=== PATIENT | female | born 1995 | race Caucasian/White ===

== ENCOUNTER 2021-09-24 07:23 | Inpatient (IN) | payer BC ==
[2021-09-24] MEDS ORDERED: Ibuprofen 800 MG TAB PO PRN (08:30)
[2021-09-24] MEDS ORDERED: Methylergonovine 0.2 MG/ML VIAL IM PRN (08:30)
[2021-09-24] MEDS ORDERED: Lidocaine 1% (PF) 30 ML VIAL SC PRN (08:30)
[2021-09-24] MEDS ORDERED: Butorphanol Tartrate 1 MG/ML VIAL SLOW IVP PRN (08:30)
[2021-09-24] MEDS ORDERED: Lactated Ringer's 1,000 ML IV PRN (08:30)
[2021-09-24] MEDS ORDERED: Ondansetron PF 4 MG/2 ML Vial IVP PRN ×2 (08:30→19:29)
[2021-09-24] MEDS ORDERED: Promethazine HCl 25 MG/ML VIAL IM PRN ×2 (08:30→19:29)
[2021-09-24] MEDS ORDERED: HYDROcodone/Acetaminophen 5/325 mg Tablet PO PRN ×2 (08:30)
[2021-09-24] MEDS ORDERED: Misoprostol 200 MCG TAB PR PRN (08:30)
[2021-09-24] MEDS ORDERED: NS w/ Oxytocin 30 units 500 ML IV SCH ×2 (08:30)
[2021-09-24] MEDS ORDERED: hydrALAZINE 20 MG/ML VIAL SLOW IVP PRN (08:30)
[2021-09-24 09:34] VITALS: BMI 30.3
[2021-09-24 09:36] LABS: Hemoglobin 13.3 g/dL (12.0-15.5); Mean Corpuscular HGB CONC 34.8 g/dL (32.0-36.0); Mean Corpuscular Hemoglobin 29.8 pg (27.0-33.0); Mean Corpuscular Volume 85.7 fl (81.6-98.3); Mean Platelet Volume 11.3 fl (7.4-10.4); Platelet Count 197 10x3/uL (150-450); RBC Distribution Width 13.2 % (11.5-14.5); Red Blood Cell (RBC) Count 4.46 10x6/uL (3.90-5.03); White Blood Cell (WBC) Count 10.1 10x3/uL (3.5-10.5)
[2021-09-24 10:05] LABS: Syphilis Antibody Nonreactive (Nonreactive); Syphilis Antibody Index 0.06 S/CO (<1.00 Non-Reactive)
[2021-09-24 10:06] LABS: Hep B Surf Ag Non-Reactive S/CO (NonReactive)
[2021-09-24 10:41] LABS: HBSAg Index 0.18 S/CO (0-0.99)
[2021-09-24 13:14] LABS: SARS-CoV-2 NAA Rapid Test Not Detected (NotDetected)
[2021-09-24] MEDS ORDERED: Fentanyl 2 mcg/Bup 0.1% Cadd 100 ML ONE (18:35)
[2021-09-24] MEDS ORDERED: Acetaminophen 325 MG TAB PO PRN (19:29)
[2021-09-24] MEDS ORDERED: ePHEDrine Sulfate 50 MG/10 ML VIAL SLOW IVP PRN (19:29)
[2021-09-24] MEDS ORDERED: Naloxone HCl 0.4 mg/ml Vial IVP PRN ×2 (19:29)
[2021-09-24] MEDS ORDERED: Moisturizing Cream (Eucerin) 113 GM JAR TOP PRN (19:29)
[2021-09-24] MEDS ORDERED: diphenhydrAMINE 50 MG/ML VIAL IVP PRN (19:29)
[2021-09-24] MEDS ORDERED: Communication Order-Pharmacy FS SCH (19:30)
[2021-09-24] MEDS ORDERED: Fentanyl 2 mcg/Bupivacaine 0.1% Cassette 100 ML EPIDURAL SCH (19:30)
[2021-09-24] MEDS ORDERED: Lactated Ringer's 500 ML IV PRN (19:32)
[2021-09-25] MEDS ORDERED: Bisacodyl 10 MG SUPP PR PRN (02:02)
[2021-09-25] MEDS ORDERED: Milk Of Magnesia 30 ML UDCUP PO PRN (02:02)
[2021-09-25] MEDS ORDERED: Ondansetron PF 4 MG/2 ML Vial IVP PRN (02:02)
[2021-09-25] MEDS ORDERED: HYDROcodone/Acetaminophen 5/325 mg Tablet PO PRN ×2 (02:02)
[2021-09-25] MEDS ORDERED: Methylergonovine 0.2 MG/ML VIAL IM PRN (02:02)
[2021-09-25] MEDS ORDERED: Benzocaine-Menthol 82.5 ML CAN TOP PRN (02:02)
[2021-09-25] MEDS ORDERED: Lanolin Ointment 7 GM TUBE TOP PRN (02:02)
[2021-09-25] MEDS ORDERED: Boostrix 0.5 ML (Tdap) VIAL IM ONE (02:02)
[2021-09-25] MEDS ORDERED: Misoprostol 200 MCG TAB VAG PRN (02:02)
[2021-09-25] MEDS ORDERED: NS w/ Oxytocin 30 units 500 ML IV SCH (02:02)
[2021-09-25] MEDS ORDERED: hydrALAZINE 20 MG/ML VIAL SLOW IVP PRN (02:02)
[2021-09-25] MEDS: Ibuprofen 800 MG TAB PO SCH ×3 (05:35→21:39)
[2021-09-25] MEDS: Ferrous Sulfate 325 MG TAB PO SCH ×2 (08:35→16:42)
[2021-09-25] MEDS: Docusate 100 MG CAP PO SCH ×2 (08:36→21:39)
[2021-09-25] MEDS: Prenatal Vitamin 1 TAB PO SCH (08:36)
[2021-09-26] MEDS: Ibuprofen 800 MG TAB PO SCH ×2 (05:02→13:48)
[2021-09-26] MEDS: Ferrous Sulfate 325 MG TAB PO SCH (07:51)
[2021-09-26 07:54] VITALS: TEMP 98.3
[2021-09-26 08:37] VITALS: BP 130/81
[2021-09-26] MEDS: Docusate 100 MG CAP PO SCH (08:38)
[2021-09-26] MEDS: Prenatal Vitamin 1 TAB PO SCH (08:38)
== END 2021-09-26 14:40 | disposition home or self-care (01) | DRG 807 ==
LOC: CSHLD/OP 07:23 → CSHLD 13:37 → CSHPP 09-25 01:45
PROVIDERS: ADMIT Student in an Organized Health Care Education/Training Program; ATTEND Student in an Organized Health Care Education/Training Program
PROC: 10E0XZZ Delivery of Products of Conception, External Approach (ICD-10-PCS; principal; 2021-09-24)
PROC: 0UQMXZZ Repair Vulva, External Approach (ICD-10-PCS; 2021-09-24)
DX: O42.02 Full-term premature rupture of membranes, onset of labor within 24 hours of rupture (principal); Z37.0 Single live birth; Z20.822 Contact with and (suspected) exposure to COVID-19; Z3A.39 39 weeks gestation of pregnancy; O71.82 Other specified trauma to perineum and vulva
CPT/HCPCS: 36415; 51702; 85027; 86780; 86850; 86900; 86901; 87340; 99285; J2590; U0002

== ENCOUNTER 2023-04-01 05:22 | Inpatient (IN) | payer BC ==
[2023-04-01] MEDS ORDERED: Promethazine HCl 25 MG/ML VIAL IM PRN ×2 (05:51→09:37)
[2023-04-01] MEDS ORDERED: Ibuprofen 800 MG TAB PO PRN (05:51)
[2023-04-01] MEDS ORDERED: Ondansetron PF 4 MG/2 ML Vial IVP PRN ×2 (05:51→09:37)
[2023-04-01] MEDS ORDERED: Methylergonovine 0.2 MG/ML VIAL IM PRN (05:51)
[2023-04-01] MEDS ORDERED: HYDROcodone/Acetaminophen 5/325 mg Tablet PO PRN ×4 (05:51→15:17)
[2023-04-01] MEDS ORDERED: Butorphanol Tartrate 1 MG/ML VIAL SLOW IVP PRN (05:51)
[2023-04-01] MEDS ORDERED: Lidocaine 1% (PF) 30 ML VIAL SC PRN (05:51)
[2023-04-01] MEDS ORDERED: hydrALAZINE 20 MG/ML VIAL SLOW IVP PRN ×2 (05:51→15:17)
[2023-04-01] MEDS ORDERED: Misoprostol 200 MCG TAB PR PRN (05:51)
[2023-04-01] MEDS ORDERED: Lactated Ringer's 1,000 ML IV PRN (05:51)
[2023-04-01 05:55] VITALS: BMI 30.4
[2023-04-01] MEDS ORDERED: Oxytocin 30 units/NS 500 ML 500 ML IV SCH ×3 (06:00→15:17)
[2023-04-01 06:46] LABS: Hematocrit 38.2 % (34.9-44.5); Hemoglobin 13.2 g/dL (12.0-15.5); Mean Corpuscular HGB CONC 34.6 g/dL (32.0-36.0); Mean Corpuscular Hemoglobin 30.1 pg (27.0-33.0); Mean Platelet Volume 10.8 fl (7.4-10.4); Platelet Count 199 10x3/uL (150-450); RBC Distribution Width 12.3 % (11.5-14.5); Red Blood Cell (RBC) Count 4.39 10x6/uL (3.90-5.03); White Blood Cell (WBC) Count 10.3 10x3/uL (3.5-10.5)
[2023-04-01 07:25] LABS: HBSAg Index 0.24 S/CO (0-0.99); Hep B Surf Ag - L&D Non-Reactive S/CO (NonReactive)
[2023-04-01 07:26] LABS: Syphilis Antibody Nonreactive (Nonreactive); Syphilis Antibody Index 0.05 S/CO (<1.00 Non-Reactive)
[2023-04-01] MEDS ORDERED: fentaNYL/Ropivacaine Epidural 100 ML ONE (09:11)
[2023-04-01] MEDS ORDERED: Acetaminophen 325 MG TAB PO PRN (09:37)
[2023-04-01] MEDS ORDERED: Lactated Ringer's 500 ML IV PRN (09:37)
[2023-04-01] MEDS ORDERED: Moisturizing Cream (Eucerin) 113 GM JAR TOP PRN (09:37)
[2023-04-01] MEDS ORDERED: ePHEDrine Sulfate 50 MG/10 ML VIAL SLOW IVP PRN (09:37)
[2023-04-01] MEDS ORDERED: diphenhydrAMINE 50 MG/ML VIAL IVP PRN (09:37)
[2023-04-01] MEDS ORDERED: Naloxone HCl 0.4 mg/ml Vial IVP PRN ×2 (09:37)
[2023-04-01] MEDS ORDERED: Communication Order-Pharmacy FS SCH (09:45)
[2023-04-01] MEDS ORDERED: fentaNYL 2 mcg/Ropivacaine 0.2% Epidural 100 ML CADD EPIDURAL SCH (09:45)
[2023-04-01] MEDS ORDERED: Hepatitis B Vaccine 10 MCG/0.5 ML SYR ONE (14:21)
[2023-04-01] MEDS ORDERED: Erythromycin Base 0.5% Oint 1 GM TUBE ONE (14:21)
[2023-04-01] MEDS ORDERED: Phytonadione Neonatal 1 MG/0.5 ML AMP ONE (14:21)
[2023-04-01] MEDS ORDERED: Benzocaine-Menthol 82.5 ML CAN TOP PRN (15:17)
[2023-04-01] MEDS ORDERED: Boostrix 0.5 ML (Tdap) VIAL (>/=7 yrs of age) IM ONE (15:17)
[2023-04-01] MEDS ORDERED: Lanolin Ointment 7 GM TUBE TOP PRN (15:17)
[2023-04-01] MEDS ORDERED: Bisacodyl 10 MG SUPP PR PRN (15:17)
[2023-04-01] MEDS ORDERED: Misoprostol 200 MCG TAB VAG PRN (15:17)
[2023-04-01] MEDS ORDERED: Milk Of Magnesia 30 ML UDCUP PO PRN (15:17)
[2023-04-01] MEDS: Ferrous Sulfate 325 MG TAB PO SCH (15:42)
[2023-04-01] MEDS ORDERED: Ibuprofen 800 MG TAB PO SCH (16:00)
[2023-04-01] MEDS: Ibuprofen 800 MG TAB PO SCH (22:21)
[2023-04-01] MEDS: Docusate 100 MG CAP PO SCH (22:21)
[2023-04-02] MEDS: Ibuprofen 800 MG TAB PO SCH ×2 (06:11→14:30)
[2023-04-02] MEDS: Ferrous Sulfate 325 MG TAB PO SCH (07:17)
[2023-04-02] MEDS: Docusate 100 MG CAP PO SCH (08:51)
[2023-04-02] MEDS ORDERED: Prenatal Vitamin 1 TAB PO SCH (09:00)
[2023-04-02 10:56] VITALS: BP 131/88; TEMP 98.8
== END 2023-04-02 15:12 | disposition home or self-care (01) | DRG 807 ==
LOC: CSHLD/OP 05:22 → CSHLD 05:57 → CSHPED 15:16
PROVIDERS: ADMIT Obstetrics & Gynecology; ATTEND Obstetrics & Gynecology
PROC: 10E0XZZ Delivery of Products of Conception, External Approach (ICD-10-PCS; principal; 2023-04-01)
DX: O42.02 Full-term premature rupture of membranes, onset of labor within 24 hours of rupture (principal); Z37.0 Single live birth; Z3A.39 39 weeks gestation of pregnancy; O69.81X0 Labor and delivery complicated by cord around neck, without compression, not applicable or unspecified
CPT/HCPCS: 36415; 85027; 86780; 86850; 86900; 86901; 87340